=== PATIENT | female | born 1945 | race Caucasian/White ===

== ENCOUNTER 2018-12-01 07:41 | Emergency (ER) | payer MEDICARE, OTHER ==
--- NOTE | 2018-12-01 08:00 | ED.PDOC ---
History of Present Illness - General Chief Complaint: Respiratory Problem Stated Complaint: cough,shortness of breath Time Seen by Provider: 12/01/18 07:56 Source: patient, RN notes reviewed, Vital Signs reviewed Exam Limitations: no limitations Additional Information: 73 YEAR OLD WHITE FEMALE WITH KNOWN HISTORY OF ASTHMA PRESENTS WITH PRODUCTIVE COUGH CONGESTION FEVER POST NASAL DRIP EAR ACHE DURATION LAST FEW DAYS WORSE TODAY - History of Present Illness Timing/Duration: constant, getting worse Severity: moderate Improving Factors: nothing Associated Symptoms: cough, loss of appetite Allergies/Adverse Reactions: Allergies NO KNOWN ALLERGY Allergy (Verified 03/28/15 08:24) Home Medications: Ambulatory Orders Hydrochlorothiazide 25 mg PO DAILY 03/28/15 Metoprolol Tartrate 100 mg PO BID 03/28/15 Azithromycin [Zithromax Z-Hammad] 250 mg PO Q24HR #6 tab 12/01/18 Cetirizine HCl [ZyrTEC] 10 mg PO DAILY 12/01/18 Esomeprazole Magnesium [Nexium] 40 mg PO DAILY 12/01/18 Estradiol 1 mg PO DAILY 12/01/18 Fluticasone Propionate Inhaler [Flovent 220 MCG Inhaler] 1 puff INH BID 12/01/18 Lisinopril 40 mg PO DAILY 12/01/18 Methylprednisolone [Medrol Dose Hammad] 4 mg PO DAILY 6 Days #21 tab 12/01/18 Montelukast [Singulair] 10 mg PO DAILY 12/01/18 Ash[place]-3 Fatty Acids [[place]-3 1000 mg] 1 cap PO DAILY 12/01/18 Review of Systems - Review of Systems Constitutional: States: fever EENTM: States: ear pain, nose congestion, throat pain Respiratory: States: cough, short of breath, wheezing Cardiology: States: no symptoms reported Gastrointestinal/Abdominal: States: no symptoms reported Genitourinary: States: no symptoms reported Musculoskeletal: States: no symptoms reported Skin: States: no symptoms reported Neurological: States: no symptoms reported Hematologic/Lymphatic: States: no symptoms reported Past Medical History (General) - Patient Medical History Hx Stroke: No Hx Asthma: Yes Hx Congestive Heart Failure: No Hx Hypertension: Yes Hx Diabetes: No Surgical History: Hysterectomy - Vaccination History Hx Influenza Vaccination: Yes Hx Pneumococcal Vaccination: Yes - Social History Hx Tobacco Use: No Family Medical History - Family History Mother Living Status: Age at (years of age): 50 Hx Family Stroke: Yes Hx Family Diabetes: Yes Physical Exam - Physical Exam General Appearance: Alert, Comfortable Ears, Nose, Throat: hearing grossly normal, normal ENT inspection Neck: non-tender, full range of motion, supple Respiratory: chest non-tender, normal breath sounds, no respiratory distress, no accessory muscle use Cardiovascular/Chest: normal peripheral pulses, regular rate, rhythm, no edema, no gallop, no JVD Gastrointestinal/Abdominal: normal bowel sounds, non tender, soft, no organomegaly Back Exam: normal inspection, no CVA tenderness, no vertebral tenderness Extremity: normal range of motion, non-tender, normal inspection 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 Copy, Patient Portal Self Enrollment Diet: resume usual diet - FOLLOW UP WITH YOUR PCP Home Medications: Ambulatory Orders Hydrochlorothiazide 25 mg PO DAILY 03/28/15 Metoprolol Tartrate 100 mg PO BID 03/28/15 Azithromycin [Zithromax Z-Hammad] 250 mg PO Q24HR #6 tab 12/01/18 Cetirizine HCl [ZyrTEC] 10 mg PO DAILY 12/01/18 Esomeprazole Magnesium [Nexium] 40 mg PO DAILY 12/01/18 Estradiol 1 mg PO DAILY 12/01/18 Fluticasone Propionate Inhaler [Flovent 220 MCG Inhaler] 1 puff INH BID 12/01/18 Lisinopril 40 mg PO DAILY 12/01/18 Methylprednisolone [Medrol Dose Hammad] 4 mg PO DAILY 6 Days #21 tab 12/01/18 Montelukast [Singulair] 10 mg PO DAILY 12/01/18 Ash[place]-3 Fatty Acids [[place]-3 1000 mg] 1 cap PO DAILY 12/01/18
[2018-12-01] MEDS: methylPREDNISolone SODIUM SUC 125 MG/2 ML VIAL IV ONE (08:24)
--- NOTE | 2018-12-01 08:32 | RAD ---
EXAM DESCRIPTION: Chest,1 View CLINICAL HISTORY: SOB COMPARISON: None available FINDINGS: The cardiomediastinal silhouette is unremarkable. There is no airspace consolidation or pleural effusion. The bronchovascular markings are within normal limits, and the lungs are not hyperinflated. There is no pneumothorax or acute fracture. IMPRESSION: Negative exam. Electronically signed by: Gigi Osorio MD 12/01/2018 8:29 AM CDT
[2018-12-01 09:28] VITALS: BP 109/58; TEMP 99.1; O2SAT 95
== END 2018-12-01 09:27 | disposition home or self-care (01) ==
LOC: ER 07:41
DX: J45.909 Unspecified asthma, uncomplicated (principal); J32.9 Chronic sinusitis, unspecified; I10 Essential (primary) hypertension; Z79.899 Other long term (current) drug therapy
CPT/HCPCS: 36415; 71045; 80053; 85025; J2930